=== PATIENT | female | born 1930 | race African-American/Black ===

== ENCOUNTER 2018-04-06 17:54 | Inpatient (IN) | payer MEDICARE, MEDICAID ==
[~2018-04-06] VITALS: Ht 152.4 cm; Wt 60.8 kg
[2018-04-06 19:39] LABS: BASOPHILS % 0.6 % (0.0-2.0); EOSINOPHILS % 0.5 % (0.0-5.0); HEMATOCRIT. 30.7 % (36.0-48.0); MEAN CORPUSCULAR HEMOGLOBIN 31.8 pg (28.0-32.0); MEAN CORPUSCULAR VOLUME 97.4 fL (81.0-99.0); MEAN PLATELET VOLUME 10.5 fl (7.4-10.4); MONOCYTES % 8.1 % (2.0-8.0); NEUTROPHILS % 75.8 % (40.0-76.0); PLATELET 247 x1000/uL (130-400); RED BLOOD CELL COUNT 3.15 mill/uL (4.2-5.4); RED CELL DISTRIBUTION WIDTH 13.5 % (11.6-14.6)
[2018-04-06 19:44] LABS: CHLORIDE 112 mEq/L (98-107)
[2018-04-06 22:28] LABS: CLARITY URINE CLOUDY (CLEAR); COLOR URINE YELLOW (YELLOW); KETONES URINE NEGATIVE (NEGATIVE); LEUKOCYTE ESTERASE URINE 2+ (NEGATIVE); NITRITE URINE NEGATIVE (NEGATIVE); OCCULT BLOOD URINE 2+ (NEGATIVE); PROTEIN URINE 3+ (NEGATIVE); SPECIFIC GRAVITY URINE 1.012 (1.005-1.030)
[2018-04-06] MEDS ORDERED: HYDROCODONE/ACETAMINOPHEN 5/325MG TABLET PO ONE (23:15)
[2018-04-07 09:00] VITALS: BP_SYST 110; BP_SYST 172; BP_DIAS 60; BP_DIAS 66
[2018-04-07 10:00] VITALS: BP 172/100
[2018-04-07 12:00] VITALS: BP 166/70
[2018-04-07] MEDS ORDERED: BACITRACIN 15GM TUBE TOP ONE (12:39)
[2018-04-07] MEDS ORDERED: VANCOMYCIN HCL 500 MG/VIAL ONE (12:40)
[2018-04-07] MEDS ORDERED: HYDRALAZINE 20MG/ML VIAL IV ONE (14:15)
[2018-04-07] MEDS ORDERED: ONDANSETRON HCL 4MG/2ML INJ IV PRN ×2 (14:15→14:45)
[2018-04-07] MEDS ORDERED: IPRATROPIUM/ALBUTEROL 0.5-3(2.5)MG/3ML NEB INH PRN (14:15)
[2018-04-07] MEDS ORDERED: HYDROCODONE/ACETAMINOPHEN 5/325MG TABLET PO PRN ×2 (14:15→14:45)
[2018-04-07] MEDS ORDERED: ACETAMINOPHEN 325MG TABLET PO PRN (14:15)
[2018-04-07] MEDS ORDERED: HYDROCODONE/ACETAMINOPHEN 10/325MG TABLET PO PRN (14:45)
[2018-04-07] MEDS ORDERED: MORPHINE SULFATE 4 MG/ML CPJ (NOT FOR IM USE) IV PRN (15:45)
[2018-04-07] MEDS ORDERED: MEPERIDINE HCL/PF 25MG/ML CPJ IV PRN (15:45)
[2018-04-07] MEDS ORDERED: METOCLOPRAMIDE HCL 10MG/2ML VIAL IV PRN (15:45)
[2018-04-07] MEDS ORDERED: HYDRALAZINE 10 MG in SODIUM CHLORIDE 0.9% 49.5 ML IV NR (16:00)
[2018-04-07 17:51] LABS: INR 1.1; PROTHROMBIN TIME 11.3 sec (9.1-11.1)
[2018-04-07 18:07] LABS: PHOSPHORUS 4.2 mg/dL (2.5-4.9)
[2018-04-07 18:20] LABS: FOLIC ACID (FOLATE) SERUM >20 ng/mL ng/mL (>5.38)
[2018-04-07 18:32] LABS: VITAMIN B12 SERUM 1792 pg/mL (211-911)
[2018-04-07 18:33] LABS: FERRITIN 244 ng/mL (10-291)
[2018-04-07 18:37] LABS: HEPATITIS B SURFACE ANTIGEN NEGATIVE
[2018-04-07 19:07] LABS: HEPATITIS A AB IGM NEGATIVE (NEGATIVE)
[2018-04-07 20:00] VITALS: BP 154/59
[2018-04-07] MEDS: THROAT LOZENGES-BENZOCAINE/MENTH/CETYLPYRD CL LOZENGES MM PRN (20:38)
[2018-04-08] MEDS: CEFAZOLIN 1000MG PREMIX 50 ML IV SCH ×4 (00:07→21:20)
[2018-04-08] MEDS: THROAT LOZENGES-BENZOCAINE/MENTH/CETYLPYRD CL LOZENGES MM PRN (06:03)
[2018-04-08 07:37] LABS: HEMATOCRIT. 29.7 % (36.0-48.0); HEMOGLOBIN. 9.7 g/dL (12.0-16.0); MEAN CORPUSCULAR HEMOGLOBIN 31.6 pg (28.0-32.0); MEAN CORPUSCULAR VOLUME 97.1 fL (81.0-99.0); MEAN PLATELET VOLUME 10.5 fl (7.4-10.4); PLATELET 233 x1000/uL (130-400); RED BLOOD CELL COUNT 3.06 mill/uL (4.2-5.4); RED CELL DISTRIBUTION WIDTH 13.4 % (11.6-14.6)
[2018-04-08 07:44] LABS: CHLORIDE 112 mEq/L (98-107)
[2018-04-08 08:00] VITALS: BP 164/69
[2018-04-08] MEDS: AMLODIPINE 5MG TABLET PO SCH (08:21)
[2018-04-08] MEDS: LORAZEPAM 0.5MG TABLET PO PRN (08:21)
[2018-04-08] MEDS: LORAZEPAM 2MG/ML CPJ IV PRN (08:40)
[2018-04-08 16:28] VITALS: BP 104/53
[2018-04-08] MEDS: DOCUSATE SODIUM 250MG CAPSULE PO SCH (17:00)
[2018-04-08 20:00] VITALS: BP 146/74
[2018-04-09] VITALS: BP 138/96
[2018-04-09 04:00] VITALS: BP 154/74
[2018-04-09] MEDS: CEFAZOLIN 1000MG PREMIX 50 ML IV SCH ×3 (05:20→22:00)
[2018-04-09 05:40] LABS: PLATELET ESTIMATE NORMAL
[2018-04-09 07:42] LABS: BASOPHILS % 0.6 % (0.0-2.0); EOSINOPHILS % 0.1 % (0.0-5.0); HEMATOCRIT. 29.1 % (36.0-48.0); HEMOGLOBIN. 9.3 g/dL (12.0-16.0); LYMPHOCYTES % 11.3 % (20.0-50.0); MEAN CORPUSCULAR HEMOGLOBIN 31.3 pg (28.0-32.0); MEAN CORPUSCULAR VOLUME 97.6 fL (81.0-99.0); MEAN PLATELET VOLUME 10.2 fl (7.4-10.4); MONOCYTES % 5.5 % (2.0-8.0); NEUTROPHILS % 82.5 % (40.0-76.0); PLATELET 235 x1000/uL (130-400); RED BLOOD CELL COUNT 2.98 mill/uL (4.2-5.4); RED CELL DISTRIBUTION WIDTH 13.5 % (11.6-14.6)
[2018-04-09 07:54] LABS: CHLORIDE 117 mEq/L (98-107)
[2018-04-09] MEDS: DOCUSATE SODIUM 250MG CAPSULE PO SCH (09:00)
[2018-04-09] MEDS: LORAZEPAM 2MG/ML CPJ IV PRN (11:26)
[2018-04-09 12:00] VITALS: BP 180/118
[2018-04-09] MEDS: DOCUSATE SODIUM 100MG CAPSULE PO PRN ×2 (16:16→16:19)
[2018-04-09] MEDS: AMLODIPINE 5MG TABLET PO SCH (16:16)
[2018-04-09] MEDS: METRONIDAZOLE 500 MG PREMIX 100 ML IV SCH ×2 (16:20→20:00)
[2018-04-09] MEDS: PANTOPRAZOLE SODIUM 40 MG/VIAL IV SCH (19:03)
[2018-04-09 20:00] VITALS: BP 189/92
[2018-04-10] MEDS: METRONIDAZOLE 500 MG PREMIX 100 ML IV SCH ×3 (04:00→20:27)
[2018-04-10 08:00] VITALS: BP 186/78
[2018-04-10] MEDS ORDERED: HYDRALAZINE 20MG/ML VIAL IV ONE (08:15)
[2018-04-10] MEDS: CLONIDINE 0.1MG TABLET PO PRN (08:43)
[2018-04-10] MEDS: AMLODIPINE 5MG TABLET PO SCH ×2 (08:44→20:27)
[2018-04-10] MEDS: DOCUSATE SODIUM 250MG CAPSULE PO SCH (08:44)
[2018-04-10] MEDS: LORAZEPAM 0.5MG TABLET PO PRN (08:44)
[2018-04-10] MEDS ORDERED: HYDRALAZINE 10 MG in SODIUM CHLORIDE 0.9% 49.5 ML IV NR (09:00)
[2018-04-10] MEDS: PANTOPRAZOLE SODIUM 40 MG/VIAL IV SCH (09:00)
[2018-04-10 09:31] LABS: BASOPHILS % 0.5 % (0.0-2.0); EOSINOPHILS % 0.4 % (0.0-5.0); HEMATOCRIT. 28.1 % (36.0-48.0); HEMOGLOBIN. 9.2 g/dL (12.0-16.0); LYMPHOCYTES % 11.8 % (20.0-50.0); MEAN CORPUSCULAR HEMOGLOBIN 32.1 pg (28.0-32.0); MEAN CORPUSCULAR VOLUME 97.8 fL (81.0-99.0); MEAN PLATELET VOLUME 10.4 fl (7.4-10.4); MONOCYTES % 5.3 % (2.0-8.0); PLATELET 245 x1000/uL (130-400); RED BLOOD CELL COUNT 2.88 mill/uL (4.2-5.4); RED CELL DISTRIBUTION WIDTH 13.1 % (11.6-14.6)
[2018-04-10 09:41] LABS: CHLORIDE 119 mEq/L (98-107)
[2018-04-10 12:00] VITALS: BP 153/81
[2018-04-10] MEDS: POLYETHYLENE GLYCOL 3350 (17GM) 1 DOSE PACK PO SCH (13:30)
[2018-04-10] MEDS: ASCORBIC ACID 500 MG TABLET PO SCH (13:30)
[2018-04-10] MEDS: DEXT 5%/0.9% NACL 1,000 ML IV SCH (13:30)
[2018-04-10] MEDS ORDERED: POTASSIUM CHLORIDE 20MEQ TABLET SR PO NR (13:30)
[2018-04-10] MEDS ORDERED: LACTULOSE 20G/30ML UDC PO NR (17:15)
[2018-04-10] MEDS: FERROUS SULFATE 325MG TABLET PO SCH (17:38)
[2018-04-10 20:00] VITALS: BP 189/83
[2018-04-11] VITALS (8 sets, daily range): BP systolic 102–185; BP diastolic 58–79
[2018-04-11] MEDS: METRONIDAZOLE 500 MG PREMIX 100 ML IV SCH ×3 (04:24→20:19)
[2018-04-11] MEDS: DEXT 5%/0.9% NACL 1,000 ML IV SCH ×2 (04:25→16:10)
[2018-04-11] MEDS: FERROUS SULFATE 325MG TABLET PO SCH ×2 (07:50→12:15)
[2018-04-11] MEDS: POLYETHYLENE GLYCOL 3350 (17GM) 1 DOSE PACK PO SCH (09:00)
[2018-04-11] MEDS: DOCUSATE SODIUM 250MG CAPSULE PO SCH (09:44)
[2018-04-11] MEDS: PANTOPRAZOLE SODIUM 40 MG/VIAL IV SCH (09:44)
[2018-04-11] MEDS: ASCORBIC ACID 500 MG TABLET PO SCH (09:44)
[2018-04-11] MEDS: AMLODIPINE 5MG TABLET PO SCH ×2 (09:44→20:25)
[2018-04-11 10:53] LABS: BASOPHILS % 0.3 % (0.0-2.0); EOSINOPHILS % 1.1 % (0.0-5.0); HEMATOCRIT. 31.2 % (36.0-48.0); HEMOGLOBIN. 10.4 g/dL (12.0-16.0); MEAN CORPUSCULAR HEMOGLOBIN 32.5 pg (28.0-32.0); MEAN CORPUSCULAR VOLUME 97.5 fL (81.0-99.0); MONOCYTES % 4.5 % (2.0-8.0); NEUTROPHILS % 83.1 % (40.0-76.0); PLATELET 266 x1000/uL (130-400); RED CELL DISTRIBUTION WIDTH 13.3 % (11.6-14.6)
[2018-04-11 10:58] LABS: CHLORIDE 112 mEq/L (98-107)
[2018-04-11] MEDS: CLONIDINE 0.1MG TABLET PO PRN (12:15)
[2018-04-11] MEDS ORDERED: POTASSIUM CHLORIDE 20MEQ TABLET SR PO NR (15:30)
[2018-04-11 18:06] LABS: CREATINE KINASE MB FRACTION 4.8 ng/mL (0.5-3.6)
[2018-04-11] MEDS: LORAZEPAM 0.5MG TABLET PO PRN (20:44)
[2018-04-11] MEDS: DILTIAZEM HCL 60MG TABLET PO SCH (22:15)
[2018-04-11] MEDS: ASPIRIN 81MG EC TABLET PO SCH (23:03)
[2018-04-11] MEDS: ENOXAPARIN 30MG/0.3ML SYR SUBCUT SCH (23:03)
[2018-04-11] MEDS: ATORVASTATIN CALCIUM 40MG TABLET PO SCH (23:03)
[2018-04-12] VITALS (11 sets, daily range): BP systolic 128–168; BP diastolic 58–84
[2018-04-12] MEDS: METRONIDAZOLE 500 MG PREMIX 100 ML IV SCH ×3 (03:59→20:49)
[2018-04-12] MEDS: DEXT 5%/0.9% NACL 1,000 ML IV SCH (03:59)
[2018-04-12] MEDS: DILTIAZEM HCL 60MG TABLET PO SCH ×5 (06:00→22:00)
[2018-04-12 06:50] LABS: CHLORIDE 116 mEq/L (98-107)
[2018-04-12 07:01] LABS: CREATINE KINASE 226 IU/L (26-192)
[2018-04-12 07:03] LABS: CREATINE KINASE MB FRACTION 3.4 ng/mL (0.5-3.6)
[2018-04-12 07:03] LABS: BASOPHILS % 0.3 % (0.0-2.0); EOSINOPHILS % 2.4 % (0.0-5.0); HEMATOCRIT. 26.5 % (36.0-48.0); HEMOGLOBIN. 8.9 g/dL (12.0-16.0); LYMPHOCYTES % 15.7 % (20.0-50.0); MEAN CORPUSCULAR HEMOGLOBIN 32.4 pg (28.0-32.0); MEAN CORPUSCULAR VOLUME 96.6 fL (81.0-99.0); MEAN PLATELET VOLUME 9.8 fl (7.4-10.4); MONOCYTES % 7.8 % (2.0-8.0); NEUTROPHILS % 73.8 % (40.0-76.0); PLATELET 224 x1000/uL (130-400); RED BLOOD CELL COUNT 2.74 mill/uL (4.2-5.4); RED CELL DISTRIBUTION WIDTH 13.5 % (11.6-14.6)
[2018-04-12] MEDS: DOCUSATE SODIUM 250MG CAPSULE PO SCH (09:00)
[2018-04-12] MEDS: POLYETHYLENE GLYCOL 3350 (17GM) 1 DOSE PACK PO SCH (09:00)
[2018-04-12] MEDS: POTASSIUM CHLORIDE 20MEQ TABLET SR PO SCH (09:45)
[2018-04-12] MEDS: PANTOPRAZOLE SODIUM 40 MG/VIAL IV SCH (09:48)
[2018-04-12] MEDS: METOPROLOL TARTRATE 25MG TABLET PO SCH ×2 (09:49→21:00)
[2018-04-12] MEDS: ASPIRIN 81MG EC TABLET PO SCH (09:49)
[2018-04-12] MEDS: CLONIDINE 0.1MG TABLET PO PRN (16:03)
[2018-04-12 16:27] LABS: CREATINE KINASE MB FRACTION 2.9 ng/mL (0.5-3.6)
[2018-04-12] MEDS ORDERED: IOHEXOL-350 100 ML BOTTLE ONE (16:41)
[2018-04-12] MEDS: LORAZEPAM 2MG/ML CPJ IV PRN (18:49)
[2018-04-12] MEDS: ENOXAPARIN 30MG/0.3ML SYR SUBCUT SCH ×2 (20:49→21:00)
[2018-04-12] MEDS: ATORVASTATIN CALCIUM 40MG TABLET PO SCH (21:00)
[2018-04-12 22:12] LABS: BG BASE EXCESS -7.6 mmol/L (-2.0-2.0); BG CARBOXYHEMOGLOBIN 0.1 % (0.5-1.5); BG DEOXYHEMOGLOBIN 5.1 % (0.0-5.0); BG FRACTION INSPIRED OXYGEN 21; BG HCO3 ACT 15.8 mmol/L (22.0-26.0); BG METHEMOGLOBIN 0.1 % (0.0-1.5); BG OXYGEN SATURATION 94.9 % (92.0-98.5); BG OXYHEMOGLOBIN 94.7 % (94.0-97.0); BG PCO2 25.8 mmHg (35.0-45.0); BG PH 7.404 (7.350-7.450); BG PO2 82.1 mmHg (75.0-100.0); BG SAMPLE SITE LEFT RADIAL; BG TOTAL HEMOGLOBIN 10.4 g/dL (12.0-18.0); BG VENT MODE ROOM AIR
[2018-04-12] MEDS: DEXT 5%/0.45% NACL 1000ML 1,000 ML IV SCH (22:17)
[2018-04-12 22:31] LABS: HEMATOCRIT 27.4 % (36.0-48.0); HEMOGLOBIN 8.7 g/dL (12.0-16.0)
[2018-04-12 23:00] LABS: CREATINE KINASE MB FRACTION 3.3 ng/mL (0.5-3.6)
[2018-04-12] MEDS: PIPERACILLIN/TAZ 3.375G PREMIX 50 ML IV SCH (23:01)
[2018-04-13] VITALS (11 sets, daily range): BP systolic 111–169; BP diastolic 58–83
[2018-04-13] MEDS: METRONIDAZOLE 500 MG PREMIX 100 ML IV SCH ×2 (04:27→11:23)
[2018-04-13] MEDS: DILTIAZEM HCL 60MG TABLET PO SCH (06:00)
[2018-04-13] MEDS: PIPERACILLIN/TAZ 3.375G PREMIX 50 ML IV SCH ×2 (06:31→12:30)
[2018-04-13 08:09] LABS: CHLORIDE 118 mEq/L (98-107)
[2018-04-13 08:10] LABS: BASOPHILS % 0.5 % (0.0-2.0); EOSINOPHILS % 1.9 % (0.0-5.0); HEMATOCRIT. 27.6 % (36.0-48.0); HEMOGLOBIN. 8.7 g/dL (12.0-16.0); LYMPHOCYTES % 12.1 % (20.0-50.0); MEAN CORPUSCULAR HEMOGLOBIN 31.6 pg (28.0-32.0); MEAN CORPUSCULAR VOLUME 99.8 fL (81.0-99.0); MEAN PLATELET VOLUME 9.8 fl (7.4-10.4); MONOCYTES % 7.8 % (2.0-8.0); NEUTROPHILS % 77.7 % (40.0-76.0); PLATELET 213 x1000/uL (130-400); RED BLOOD CELL COUNT 2.76 mill/uL (4.2-5.4); RED CELL DISTRIBUTION WIDTH 14.1 % (11.6-14.6)
[2018-04-13] MEDS: ASPIRIN 81MG EC TABLET PO SCH (10:24)
[2018-04-13] MEDS: DOCUSATE SODIUM 250MG CAPSULE PO SCH (10:24)
[2018-04-13] MEDS: POTASSIUM CHLORIDE 20MEQ TABLET SR PO SCH (10:24)
[2018-04-13] MEDS: PANTOPRAZOLE SODIUM 40 MG/VIAL IV SCH (10:25)
[2018-04-13] MEDS: METOPROLOL TARTRATE 25MG TABLET PO SCH ×2 (10:25→21:11)
[2018-04-13] MEDS: POLYETHYLENE GLYCOL 3350 (17GM) 1 DOSE PACK PO SCH ×2 (10:25→10:45)
[2018-04-13] MEDS: DILTIAZEM HCL 120MG CAPSULE CD 24HR PO SCH (11:15)
[2018-04-13] MEDS: DEXT 5%/0.45% NACL 1000ML 1,000 ML IV SCH ×2 (16:30→23:09)
[2018-04-13] MEDS ORDERED: LEVOFLOXACIN 500MG TABLET PO NR (18:00)
[2018-04-13] MEDS: LACTULOSE 20G/30ML UDC PO SCH (21:11)
[2018-04-13] MEDS: ATORVASTATIN CALCIUM 40MG TABLET PO SCH (21:11)
[2018-04-13] MEDS: ENOXAPARIN 30MG/0.3ML SYR SUBCUT SCH (21:12)
[2018-04-14] VITALS (11 sets, daily range): BP systolic 124–162; BP diastolic 56–79
[2018-04-14] MEDS: METRONIDAZOLE 500MG TABLET PO SCH ×2 (06:40→13:16)
[2018-04-14] MEDS: LACTULOSE 20G/30ML UDC PO SCH ×2 (06:40→13:14)
[2018-04-14 07:08] LABS: CHLORIDE 118 mEq/L (98-107)
[2018-04-14 07:55] LABS: HEMATOCRIT 26.3 % (36.0-48.0); HEMOGLOBIN 8.6 g/dL (12.0-16.0); MEAN CORPUSCULAR HEMOGLOBIN 31.7 pg (28.0-32.0); MEAN CORPUSCULAR VOLUME 96.4 fL (81.0-99.0); PLATELET 252 x1000/uL (130-400); RED BLOOD CELL COUNT 2.73 mill/uL (4.2-5.4); RED CELL DISTRIBUTION WIDTH 13.6 % (11.6-14.6)
[2018-04-14] MEDS: POTASSIUM CHLORIDE 20MEQ TABLET SR PO SCH (08:14)
[2018-04-14] MEDS: DOCUSATE SODIUM 250MG CAPSULE PO SCH (08:14)
[2018-04-14] MEDS: DILTIAZEM HCL 120MG CAPSULE CD 24HR PO SCH (08:15)
[2018-04-14] MEDS: ASPIRIN 81MG EC TABLET PO SCH (08:15)
[2018-04-14] MEDS: METOPROLOL TARTRATE 25MG TABLET PO SCH (08:15)
[2018-04-14] MEDS ORDERED: FAMOTIDINE 20MG TABLET PO SCH (09:00)
[2018-04-14] MEDS ORDERED: LEVOFLOXACIN 250MG TABLET PO SCH (17:00)
== END 2018-04-14 19:08 | DRG 481 ==
LOC: ER 17:54 → 6EST 04-07 00:22 → ENRESERV 04-07 07:02 → 5WST 04-11 18:12 → 3WST 04-12 00:10
PROVIDERS: ADMIT Internal Medicine; ATTEND Internal Medicine
PROC: 0QS734Z Reposition Left Upper Femur with Internal Fixation Device, Percutaneous Approach (ICD-10-PCS; principal; 2018-04-07)
PROC: BQ14ZZZ Fluoroscopy of Left Femur (ICD-10-PCS; 2018-04-08)
PROC: 30233N1 Transfusion of Nonautologous Red Blood Cells into Peripheral Vein, Percutaneous Approach (ICD-10-PCS; 2018-04-14)
DX: S72.012A Unspecified intracapsular fracture of left femur, initial encounter for closed fracture (principal); E87.0 Hyperosmolality and hypernatremia; G93.40 Encephalopathy, unspecified; M62.82 Rhabdomyolysis; N39.0 Urinary tract infection, site not specified; E72.20 Disorder of urea cycle metabolism, unspecified; D68.59 Other primary thrombophilia; M16.0 Bilateral primary osteoarthritis of hip; D25.9 Leiomyoma of uterus, unspecified; I16.0 Hypertensive urgency; R74.0 Nonspecific elevation of levels of transaminase and lactic acid dehydrogenase [LDH]; D64.9 Anemia, unspecified; I49.3 Ventricular premature depolarization; E87.6 Hypokalemia; K80.20 Calculus of gallbladder without cholecystitis without obstruction; I27.20 Pulmonary hypertension, unspecified; D50.9 Iron deficiency anemia, unspecified; D63.8 Anemia in other chronic diseases classified elsewhere; E78.00 Pure hypercholesterolemia, unspecified; F03.90 Unspecified dementia, unspecified severity, without behavioral disturbance, psychotic disturbance, mood disturbance, and anxiety; I10 Essential (primary) hypertension; I48.0 Paroxysmal atrial fibrillation; J84.10 Pulmonary fibrosis, unspecified; Z91.19 Patient's noncompliance with other medical treatment and regimen; W01.0XXA Fall on same level from slipping, tripping and stumbling without subsequent striking against object, initial encounter; K86.89 Other specified diseases of pancreas; Y93.01 Activity, walking, marching and hiking
CPT/HCPCS: 36415; 36600; 71275; 72192; 73502; 73562; 76000; 76700; 78227; 80048; 80061; 80076; 82140; 82248; 82375; 82550; 82553; 82607; 82728; 82746; 82805; 83036; 83540; 83550; 83735; 84100; 84443; 84484; 85014; 85018; 85027; 85379; 86705; 86709; 86803; 86850; 86900; 86920; 87340; 92610; 93005; 93306; 93971; 96374; 97162; 97164; 97166; 97530; 99285; A9537; C1893; C9113; J0360; J0690; J1650; J2060; J2543; J3370; J3490; J7042; J7050; P9016; Q9967